=== PATIENT | male | born 1985 | race Caucasian/White ===

== ENCOUNTER 2023-10-18 22:34 | Emergency (ER) | payer MEDICAID, OTHER ==
--- NOTE | 2023-10-18 23:06 | ED ---
General Adult HPI - General Source: family, RN notes reviewed, old records reviewed Mode of arrival: ambulatory <Jesse Humphrey - Last Filed: 10/18/23 23:03> <Prosper Gutierrez - Last Filed: 10/19/23 13:37> - General Chief complaint: Psychiatric Symptoms Stated complaint: mental health-petition Time Seen by Provider: 10/18/23 22:50 - History of Present Illness Initial comments: 37-year-old male presenting for evaluation of suicidal thoughts, increased depression. Patient had an appointment with [facility] but this appointment was canceled earlier this week. He is having some financial difficulties and has had thoughts and statements about suicide. He denies physical complaint. Denies suicide attempt. (Jesse Humphrey) Review of Systems ROS Other: All systems not noted in ROS Statement are negative. <Jesse Humphrey - Last Filed: 10/18/23 23:03> ROS Other: All systems not noted in ROS Statement are negative. <Prosper Gutierrez - Last Filed: 10/19/23 13:37> ROS Statement: Those systems with pertinent positive or pertinent negative responses have been documented in the HPI. General Exam General appearance: alert, in no apparent distress Head exam: Present: atraumatic, normocephalic Eye exam: Present: normal appearance, PERRL Neck exam: Present: normal inspection. Absent: tenderness, meningismus Respiratory exam: Present: normal lung sounds bilaterally. Absent: respiratory distress Cardiovascular Exam: Present: regular rate, normal rhythm GI/Abdominal exam: Present: soft Extremities exam: Present: normal inspection, normal capillary refill Neurological exam: Present: alert, oriented X3 Psychiatric exam: Present: depressed, suicidal ideation Skin exam: Present: warm, dry, intact <Jesse Humphrey - Last Filed: 10/18/23 23:03> Course <Jesse Humphrey - Last Filed: 10/18/23 23:03> Vital Signs 10/18/23 22:41 Temperature 97.8 F Pulse Rate 90 Respiratory 18 Rate Blood Pressure 124/82 O2 Sat by Pulse 98 Oximetry - Reevaluation(s) Reevaluation #1: 10/18/23 23:04 Patient is petitioned by his fiance. (Jesse Humphrey) Reevaluation #2: 10/18/23 23:05 Patient cleared for EPS evaluation. (Jesse Humphrey) Medical Decision Making <Jesse Humphrey - Last Filed: 10/18/23 23:03> - Lab Data Result diagrams: 10/19/23 11:26 10/19/23 11:26 <Prosper Gutierrez - Last Filed: 10/19/23 13:37> - Medical Decision Making Was pt. sent in by a medical professional or institution (JESSEE Chahal, CIRCLE BEVELER, urgent care, hospital, or group home...) When possible be specific @ -No Did you speak to anyone other than the patient for history (EMS, parent, family, police, friend...)? What history was obtained from this source @ -No Did you review nursing and triage notes (agree or disagree)? Why? @ -I reviewed and agree with nursing and triage notes Were old charts reviewed (outside hosp., previous admission, EMS record, old EKG, old radiological studies, urgent care reports/EKG's, group home records)? Report findings @ -No old charts were reviewed Differential Diagnosis differential Mental Health Depression, anxiety, bipolar, psychosis, schizophrenia, borderline personality, situational depression, adjustment disorder, behavioral disorder, brain tumor, malingering, substance abuse, encephalopathy, medication reaction, dementia, hypothyroidism, degenerative neurologic disorder, lupus.... This is not meant to be all-inclusive list EKG interpreted by me (3pts min.). @ -As above X-rays interpreted by me (1pt min.). @ -None done CT interpreted by me (1pt min.). @ -None done U/S interpreted by me (1pt. min.). @ -None done What testing was considered but not performed or refused? (CT, X-rays, U/S, labs)? Why? @ -None What meds were considered but not given or refused? Why? @ -None Did you discuss the management of the patient with other professionals (professionals i.e. JESSEE Chahal, CIRCLE BEVELER, lab, RT, psych nurse, social insurance analyst, roller skates assembler, teacher, morals squad police officer, lining caser)? Give summary @ -No Was smoking cessation discussed for >3mins.? @ -No Was critical care preformed (if so, how long)? @ -No Were there social determinants of health that impacted care today? How? (Homelessness, low income, unemployed, alcoholism, drug addiction, transportation, low edu. Level, literacy, decrease access to med. care, [facility], rehab)? @ -No Was there de-escalation of care discussed even if they declined (Discuss DNR or withdrawal of care, Hospice)? DNR status @ -No What co-morbidities impacted this encounter? (DM, HTN, Smoking, COPD, CAD, Cancer, CVA, ARF, Chemo, Hep., AIDS, mental health diagnosis, sleep apnea, morbid obesity)? @ -None Was patient admitted / discharged? Hospital course, mention meds given and route, prescriptions, significant lab abnormalities, going to OR and other pertinent info. @ -Patient medically cleared for EPS, awaiting evaluation. (Jesse Humphrey) Case was discussed with psychiatric nurse with plans for transfer or admission for psychiatric care. Patient reevaluated. Patient admits to depression and suicidal thoughts for several days. Patient will be admitted or transferred for psychiatric care. Positive clinical certificate completed. Diagnosis: Depression Acute Complicated with suicidal thoughts (Prosper Gutierrez) - Lab Data Lab Results 10/18/23 10/19/23 10/19/23 Range/Units 23:38 11:26 11:26 WBC 5.2 (3.8-10.6) k/uL RBC 4.93 (4.30-5.90) m/uL Hgb 14.8 (13.0-17.5) gm/dL Hct 43.0 (39.0-53.0) % MCV 87.2 (80.0-100.0) fL MCH 30.1 (25.0-35.0) pg MCHC 34.5 (31.0-37.0) g/dL RDW 13.3 (11.5-15.5) % Plt Count 219 (150-450) k/uL MPV 7.5 Sodium 140 (137-145) mmol/L Potassium 4.0 (3.5-5.1) mmol/L Chloride 110 H (98-107) mmol/L Carbon Dioxide 22 (22-30) mmol/L Anion Gap 8 mmol/L BUN 13 (9-20) mg/dL Creatinine 0.85 (0.66-1.25) mg/dL Est GFR (CKD-EPI)AfAm >90 (>60 ml/min/1.73 sqM) Est GFR (CKD-EPI)NonAf >90 (>60 ml/min/1.73 sqM) Glucose 99 (74-99) mg/dL Calcium 9.7 (8.4-10.2) mg/dL Total Bilirubin 0.6 (0.2-1.3) mg/dL AST 44 (17-59) U/L ALT 63 H (4-49) U/L Alkaline Phosphatase 75 (38-126) U/L Total Protein 7.9 (6.3-8.2) g/dL Albumin 4.5 (3.5-5.0) g/dL Urine Opiates Screen Not Detected (NotDetected) Ur Oxycodone Screen Not Detected (NotDetected) Urine Methadone Screen Not Detected (NotDetected) Ur Barbiturates Screen Not Detected (NotDetected) U Tricyclic Antidepress Not Detected (NotDetected) Ur Phencyclidine Scrn Not Detected (NotDetected) Ur Amphetamines Screen Not Detected (NotDetected) U Methamphetamines Scrn Not Detected (NotDetected) U Benzodiazepines Scrn Not Detected (NotDetected) Urine Cocaine Screen Not Detected (NotDetected) U Marijuana (THC) Screen Detected H (NotDetected) SARS-CoV-2 (PCR) (Not Detectd) 10/19/23 Range/Units 11:26 WBC (3.8-10.6) k/uL RBC (4.30-5.90) m/uL Hgb (13.0-17.5) gm/dL Hct (39.0-53.0) % MCV (80.0-100.0) fL MCH (25.0-35.0) pg MCHC (31.0-37.0) g/dL RDW (11.5-15.5) % Plt Count (150-450) k/uL MPV Sodium (137-145) mmol/L Potassium (3.5-5.1) mmol/L Chloride (98-107) mmol/L Carbon Dioxide (22-30) mmol/L Anion Gap mmol/L BUN (9-20) mg/dL Creatinine (0.66-1.25) mg/dL Est GFR (CKD-EPI)AfAm (>60 ml/min/1.73 sqM) Est GFR (CKD-EPI)NonAf (>60 ml/min/1.73 sqM) Glucose (74-99) mg/dL Calcium (8.4-10.2) mg/dL Total Bilirubin (0.2-1.3) mg/dL AST (17-59) U/L ALT (4-49) U/L Alkaline Phosphatase (38-126) U/L Total Protein (6.3-8.2) g/dL Albumin (3.5-5.0) g/dL Urine Opiates Screen (NotDetected) Ur Oxycodone Screen (NotDetected) Urine Methadone Screen (NotDetected) Ur Barbiturates Screen (NotDetected) U Tricyclic Antidepress (NotDetected) Ur Phencyclidine Scrn (NotDetected) Ur Amphetamines Screen (NotDetected) U Methamphetamines Scrn (NotDetected) U Benzodiazepines Scrn (NotDetected) Urine Cocaine Screen (NotDetected) U Marijuana (THC) Screen (NotDetected) SARS-CoV-2 (PCR) Not Detected (Not Detectd) Disposition <Jesse Humphrey - Last Filed: 10/18/23 23:03> Is patient prescribed a controlled substance at d/c from ED?: No Time of Disposition: 13:37 <Prosper Gutierrez - Last Filed: 10/19/23 13:37> Clinical Impression: Depression, Suicidal ideation Disposition: TRANSFER TO PSYCH HOSP/UNIT Referrals: None,Stated [Primary Care Provider] - 1-2 days
[2023-10-18 23:58] LABS: Amphetamine Screen,Urine Not Detected (NotDetected); Barbiturate Screen,Urine Not Detected (NotDetected); Benzodiazepines Screen,Urine Not Detected (NotDetected); Cocaine Screen,Urine Not Detected (NotDetected); Methadone Screen, Urine Not Detected (NotDetected); Opiate Screen,Urine Not Detected (NotDetected); Oxycodone Screen, Urine Not Detected (NotDetected); Phencyclidine Screen,Urine Not Detected (NotDetected); Tricyclic Antidepressant,Urine Not Detected (NotDetected); Urn Cannabinoid Scrn Detected (NotDetected)
[2023-10-19] MEDS: ACETAMINOPHEN TAB 325 MG TAB PO STA (10:40)
[2023-10-19 11:39] LABS: HGB 14.8 gm/dL (13.0-17.5); MCH 30.1 pg (25.0-35.0); MCHC 34.5 g/dL (31.0-37.0); MCV 87.2 fL (80.0-100.0); Mean Platelet Volume 7.5; Platelet Count 219 k/uL (150-450); RBC 4.93 m/uL (4.30-5.90); RDW 13.3 % (11.5-15.5); WBC 5.2 k/uL (3.8-10.6)
[2023-10-19 12:05] LABS: ALT 63 U/L (4-49); AST 44 U/L (17-59); African American GFR (CKD) >90 (>60 ml/min/1.73 sqM); Albumin 4.5 g/dL (3.5-5.0); Alkaline Phosphatase 75 U/L (38-126); Anion Gap 8 mmol/L; Blood Urea Nitrogen 13 mg/dL (9-20); Calcium 9.7 mg/dL (8.4-10.2); Carbon Dioxide 22 mmol/L (22-30); Chloride 110 mmol/L (98-107); Glucose 99 mg/dL (74-99); Non-African American GFR(CKD) >90 (>60 ml/min/1.73 sqM); Sodium 140 mmol/L (137-145); Total Bilirubin 0.6 mg/dL (0.2-1.3); Total Protein 7.9 g/dL (6.3-8.2)
[2023-10-19 15:03] VITALS: RESP 16
[2023-10-19 20:37] VITALS: BP 134/74; PULSE 77; TEMP 98.8
[2023-10-19] MEDS: IBUPROFEN 400 MG TAB PO STA (20:44)
== END 2023-10-19 21:08 ==
LOC: EC 22:34
DX: F32.A Depression, unspecified (principal); R45.851 Suicidal ideations; Z11.52 Encounter for screening for COVID-19
CPT/HCPCS: 36415; 80053; 80306; 82075; 85027; 87635; 99285

== ENCOUNTER 2023-12-17 00:57 | Emergency (ER) | payer OTHER ==
[2023-12-17 01:09] VITALS: TEMP 98.2
[2023-12-17] MEDS: KETOROLAC 15 MG/ML 1 ML VIAL IVP STA (02:13)
[2023-12-17 02:19] LABS: Basophils % (A) 0 %; Eosinophils # (A) 0.5 k/uL (0-0.7); Eosinophils % (A) 5 %; HCT 37.2 % (39.0-53.0); HGB 12.7 gm/dL (13.0-17.5); Lymphocytes # (A) 1.7 k/uL (1.0-4.8); Lymphocytes % (A) 19 %; MCH 30.6 pg (25.0-35.0); MCHC 34.2 g/dL (31.0-37.0); MCV 89.6 fL (80.0-100.0); Mean Platelet Volume 7.2; Monocytes # (A) 0.6 k/uL (0-1.0); Monocytes % (A) 6 %; Neutrophils % (A) 68 %; Platelet Count 230 k/uL (150-450); RBC 4.15 m/uL (4.30-5.90); RDW 14.2 % (11.5-15.5); WBC 8.9 k/uL (3.8-10.6)
[2023-12-17 02:32] LABS: Appearance,Urine Clear (Clear); Bilirubin,Urine Negative (Negative); Blood,Urine Negative (Negative); Color,Urine Light Yellow; Glucose,Urine (UA) Negative (Negative); Ketones,Urine Negative (Negative); Leukocyte Esterase,Urine Negative (Negative); Nitrite,Urine Negative (Negative); PH, Urine 5.5 (5.0-8.0); Protein,Urine Negative (Negative); Specific Gravity,Urine 1.024 (1.001-1.035); Urobilinogen,Urine <2.0 mg/dL (<2.0)
[2023-12-17 02:35] LABS: ALT 38 U/L (4-49); AST 31 U/L (17-59); African American GFR (CKD) >90 (>60 ml/min/1.73 sqM); Albumin 3.9 g/dL (3.5-5.0); Alkaline Phosphatase 55 U/L (38-126); Anion Gap 5 mmol/L; Blood Urea Nitrogen 19 mg/dL (9-20); Calcium 9.1 mg/dL (8.4-10.2); Carbon Dioxide 25 mmol/L (22-30); Chloride 108 mmol/L (98-107); Glucose 104 mg/dL (74-99); Non-African American GFR(CKD) >90 (>60 ml/min/1.73 sqM); Potassium 3.6 mmol/L (3.5-5.1); Sodium 138 mmol/L (137-145); Total Bilirubin 0.6 mg/dL (0.2-1.3); Total Protein 6.4 g/dL (6.3-8.2)
--- NOTE | 2023-12-17 02:41 | ED ---
SOB HPI - General Chief Complaint: Shortness of Breath Stated Complaint: Left leg pain, YOMI , Chest Pressure Source: patient Mode of arrival: ambulatory Limitations: no limitations - History of Present Illness Initial Comments: 38-year-old male who presents emergency department reporting 2 right-sided flank pain. States that his symptoms have been going on for the past couple of days. Reports that the pain is worse with deep inspiration. Pain is also worse with m ovement and coughing. He has not taken anything for the pain. Denies any trauma. No fevers or chills. no other alleviating, precipitating or modifying factors - Related Data Previous Rx's Medication Instructions Recorded Ketorolac [Toradol] 10 mg PO Q8HR #15 tab 12/17/23 Lidocaine 5% Patch [Lidoderm] 1 patch TOPICAL DAILY #30 patch 12/17/23 Allergies Allergy/AdvReac Type Severity Reaction Status Date / Time No Known Allergies Allergy Verified 12/17/23 01:04 Review of Systems ROS Statement: Those systems with pertinent positive or pertinent negative responses have been documented in the HPI. ROS Other: All systems not noted in ROS Statement are negative. Past Medical History Past Medical History: No Reported History History of Any Multi-Drug Resistant Organisms: None Reported Past Surgical History: Cholecystectomy Past Psychological History: ADD/ADHD, Anxiety, Depression Smoking Status: Former smoker Past Alcohol Use History: Rare Past Drug Use History: Marijuana General Exam Limitations: no limitations General appearance: alert, in no apparent distress Head exam: Present: atraumatic, normocephalic, normal inspection Eye exam: Present: normal appearance, PERRL, EOMI. Absent: scleral icterus, conjunctival injection, periorbital swelling ENT exam: Present: normal exam, mucous membranes moist Neck exam: Present: normal inspection. Absent: tenderness, meningismus, lymphadenopathy Respiratory exam: Present: normal lung sounds bilaterally. Absent: respiratory distress, wheezes, rales, rhonchi, stridor Cardiovascular Exam: Present: regular rate, normal rhythm, normal heart sounds. Absent: systolic murmur, diastolic murmur, rubs, gallop, clicks GI/Abdominal exam: Present: soft, normal bowel sounds. Absent: distended, tenderness, guarding, rebound, rigid Extremities exam: Present: normal inspection, full ROM, normal capillary refill. Absent: tenderness, pedal edema, joint swelling, calf tenderness Back exam: Present: normal inspection, CVA tenderness (R) Neurological exam: Present: alert, oriented X3, CN II-XII intact Psychiatric exam: Present: normal affect, normal mood Skin exam: Present: warm, dry, intact, normal color. Absent: rash Course Vital Signs 12/17/23 12/17/23 01:04 05:13 Temperature 98.2 F Pulse Rate 102 H 84 Respiratory 20 19 Rate Blood Pressure 113/70 127/84 O2 Sat by Pulse 98 98 Oximetry Medical Decision Making - Medical Decision Making Was pt. sent in by a medical professional or institution (, PA, HEDGE FUND PRINCIPAL, urgent care, hospital, or usp...) When possible be specific @ -No Did you speak to anyone other than the patient for history (EMS, parent, family, police, friend...)? What history was obtained from this source @ -No Did you review nursing and triage notes (agree or disagree)? Why? @ -I reviewed and agree with nursing and triage notes Were old charts reviewed (outside hosp., previous admission, EMS record, old EKG, old radiological studies, urgent care reports/EKG's, usp records)? Report findings @ -No old charts were reviewed Differential Diagnosis (chest pain, altered mental status, abdominal pain women, abdominal pain men, vaginal bleeding, weakness, fever, dyspnea, syncope, headache, dizziness, GI bleed, back pain, seizure, CVA, palpatations, mental health, musculoskeletal)? @ -Differential Chest Pain: Stable Angina, Unstable Angina, STEMI, NSTEMI Aortic Dissection, Pneumothorax, Musculoskeletal, Esophageal Spasm GERD, Cholecystitis, Pancreatitis, Zoster, this is not meant to be an all-inclusive list. EKG interpreted by me (3pts min.). @ -Yes and demonstrates sinus rhythm with a rate of 90. IN interval 173. QRS 103. QTc of 388. No acute ST segment elevations or depressions X-rays interpreted by me (1pt min.). @ -Yes and demonstrates no acute process CT interpreted by me (1pt min.). @ -None done U/S interpreted by me (1pt. min.). @ -None done What testing was considered but not performed or refused? (CT, X-rays, U/S, labs)? Why? @ -None What meds were considered but not given or refused? Why? @ -None Did you discuss the management of the patient with other professionals (professionals i.e. , PA, HEDGE FUND PRINCIPAL, lab, RT, psych nurse, older adult social work specialist, material coordinator, teacher, public safety officer, binder caser)? Give summary @ -No Was smoking cessation discussed for >3mins.? @ -No Was critical care preformed (if so, how long)? @ -No Were there social determinants of health that impacted care today? How? (Homelessness, low income, unemployed, alcoholism, drug addiction, transportation, low edu. Level, literacy, decrease access to med. care, shelter, rehab)? @ -No Was there de-escalation of care discussed even if they declined (Discuss DNR or withdrawal of care, Hospice)? DNR status @ -No What co-morbidities impacted this encounter? (DM, HTN, Smoking, COPD, CAD, Cancer, CVA, ARF, Chemo, Hep., AIDS, mental health diagnosis, sleep apnea, morbid obesity)? @ -None Was patient admitted / discharged? Hospital course, mention meds given and route, prescriptions, significant lab abnormalities, going to OR and other pertinent info. @ -Upon arrival patient seen and evaluated in room 23. Thorough history and physical exam was performed. IV access was established. Laboratory studies are conducted. Patient is sent for a rib x-ray as D-dimer is negative. Results are discussed with the patient. Patient be discharged home at this time with prescription for Toradol and Lidoderm patches. Follow-up with his primary care doctor in 2 to 4 days return for any new or worsening symptoms Undiagnosed new problem with uncertain prognosis? @ -No Drug Therapy requiring intensive monitoring for toxicity (Heparin, Nitro, Insulin, Cardizem)? @ -No Were any procedures done? @ -No Diagnosis/symptom? @ -Acute right flank/chest wall pain Acute, or Chronic, or Acute on Chronic? @ -Acute Uncomplicated (without systemic symptoms) or Complicated (systemic symptoms)? @ -Complicated Side effects of treatment? @ -No Exacerbation, Progression, or Severe Exacerbation? @ -No Poses a threat to life or bodily function? How? (Chest pain, [place], ME, pneumonia, PE, COPD, DKA, ARF, appy, cholecystitis, CVA, Diverticulitis, Homicidal, Suicidal, threat to staff... and all critical care pts) @ -No - Lab Data Result diagrams: 12/17/23 02:09 12/17/23 02:09 Lab Results 12/17/23 12/17/23 12/17/23 Range/Units 02:09 02:09 02:09 WBC 8.9 (3.8-10.6) k/uL RBC 4.15 L (4.30-5.90) m/uL Hgb 12.7 L (13.0-17.5) gm/dL Hct 37.2 L (39.0-53.0) % MCV 89.6 (80.0-100.0) fL MCH 30.6 (25.0-35.0) pg MCHC 34.2 (31.0-37.0) g/dL RDW 14.2 (11.5-15.5) % Plt Count 230 (150-450) k/uL MPV 7.2 Neutrophils % 68 % Lymphocytes % 19 % Monocytes % 6 % Eosinophils % 5 % Basophils % 0 % Neutrophils # 6.0 (1.3-7.7) k/uL Lymphocytes # 1.7 (1.0-4.8) k/uL Monocytes # 0.6 (0-1.0) k/uL Eosinophils # 0.5 (0-0.7) k/uL Basophils # 0.0 (0-0.2) k/uL PT 9.9 L (10.0-12.5) sec INR 0.9 (<1.2) APTT 25.2 (22.0-30.0) sec D-Dimer 0.37 (<0.60) mg/L FEU Sodium 138 (137-145) mmol/L Potassium 3.6 (3.5-5.1) mmol/L Chloride 108 H (98-107) mmol/L Carbon Dioxide 25 (22-30) mmol/L Anion Gap 5 mmol/L BUN 19 (9-20) mg/dL Creatinine 0.88 (0.66-1.25) mg/dL Est GFR (CKD-EPI)AfAm >90 (>60 ml/min/1.73 sqM) Est GFR (CKD-EPI)NonAf >90 (>60 ml/min/1.73 sqM) Glucose 104 H (74-99) mg/dL Plasma Lactic Acid Jem (0.7-2.0) mmol/L Calcium 9.1 (8.4-10.2) mg/dL Total Bilirubin 0.6 (0.2-1.3) mg/dL AST 31 (17-59) U/L ALT 38 (4-49) U/L Alkaline Phosphatase 55 (38-126) U/L Troponin I (0.000-0.034) ng/mL Total Protein 6.4 (6.3-8.2) g/dL Albumin 3.9 (3.5-5.0) g/dL Urine Color Urine Appearance (Clear) Urine pH (5.0-8.0) Ur Specific [place] (1.001-1.035) Urine Protein (Negative) Urine Glucose (UA) (Negative) Urine Ketones (Negative) Urine Blood (Negative) Urine Nitrite (Negative) Urine Bilirubin (Negative) Urine Urobilinogen (<2.0) mg/dL Ur Leukocyte Esterase (Negative) 12/17/23 12/17/23 12/17/23 Range/Units 02:09 02:09 02:09 WBC (3.8-10.6) k/uL RBC (4.30-5.90) m/uL Hgb (13.0-17.5) gm/dL Hct (39.0-53.0) % MCV (80.0-100.0) fL MCH (25.0-35.0) pg MCHC (31.0-37.0) g/dL RDW (11.5-15.5) % Plt Count (150-450) k/uL MPV Neutrophils % % Lymphocytes % % Monocytes % % Eosinophils % % Basophils % % Neutrophils # (1.3-7.7) k/uL Lymphocytes # (1.0-4.8) k/uL Monocytes # (0-1.0) k/uL Eosinophils # (0-0.7) k/uL Basophils # (0-0.2) k/uL PT (10.0-12.5) sec INR (<1.2) APTT (22.0-30.0) sec D-Dimer (<0.60) mg/L FEU Sodium (137-145) mmol/L Potassium (3.5-5.1) mmol/L Chloride (98-107) mmol/L Carbon Dioxide (22-30) mmol/L Anion Gap mmol/L BUN (9-20) mg/dL Creatinine (0.66-1.25) mg/dL Est GFR (CKD-EPI)AfAm (>60 ml/min/1.73 sqM) Est GFR (CKD-EPI)NonAf (>60 ml/min/1.73 sqM) Glucose (74-99) mg/dL Plasma Lactic Acid Jem 1.8 (0.7-2.0) mmol/L Calcium (8.4-10.2) mg/dL Total Bilirubin (0.2-1.3) mg/dL AST (17-59) U/L ALT (4-49) U/L Alkaline Phosphatase (38-126) U/L Troponin I <0.012 (0.000-0.034) ng/mL Total Protein (6.3-8.2) g/dL Albumin (3.5-5.0) g/dL Urine Color Light Yellow Urine Appearance Clear (Clear) Urine pH 5.5 (5.0-8.0) Ur Specific [place] 1.024 (1.001-1.035) Urine Protein Negative (Negative) Urine Glucose (UA) Negative (Negative) Urine Ketones Negative (Negative) Urine Blood Negative (Negative) Urine Nitrite Negative (Negative) Urine Bilirubin Negative (Negative) Urine Urobilinogen <2.0 (<2.0) mg/dL Ur Leukocyte Esterase Negative (Negative) Disposition Clinical Impression: Left-sided chest wall pain Disposition: HOME SELF-CARE Condition: Stable Instructions (If sedation given, give patient instructions): Chest Wall Pain (ED) Additional Instructions: Please take the pain medications as needed. If the insurance does not cover the patches, ask for the [id number] alternatives. No heavy lifting or bending. Follow-up with your primary care doctor for further workup of your symptoms Prescriptions: Lidocaine 5% Patch [Lidoderm] 1 patch TOPICAL DAILY #30 patch Ketorolac [Toradol] 10 mg PO Q8HR #15 tab Is patient prescribed a controlled substance at d/c from ED?: No Referrals: Pavithra Patino MD [Primary Care Provider] - 1-2 days Time of Disposition: 05:08
[2023-12-17 03:03] LABS: INR 0.9 (<1.2); Partial Thromboplastin Time 25.2 sec (22.0-30.0); Prothrombin Time 9.9 sec (10.0-12.5)
--- NOTE | 2023-12-17 04:58 | XR ---
EXAMINATION TYPE: XR ribs LT w pa chest xray DATE OF EXAM: 12/17/2023 CLINICAL HISTORY: Patient reports that he has had a steadily increasing pain in the left flank area. increased SOB, chest tightness, pt reports when he coughed it was the worst pain he ever felt and it felt like something moved internally. pr reports bruising on the left flank, that is not currently vi sualized by this RN TECHNIQUE: Single frontal view of the chest is obtained. A frontal and oblique images of the left-victoriano ed ribs. COMPARISON: None FINDINGS: There is no focal air space opacity, pleural effusion, or pneumothorax seen. The cardiac silhouette size is within normal limits. The osseous structures are intact. Dedicated images of the left-sided ribs show no acute displaced fracture. Overlying soft tissue is un remarkable. IMPRESSION: No acute cardiopulmonary process. No acute displaced left-sided rib fracture.
[2023-12-17 05:14] VITALS: BP 127/84; PULSE 84; RESP 19
== END 2023-12-17 05:14 | disposition home or self-care (01) ==
LOC: EC 00:57
DX: R07.89 Other chest pain (principal); R10.9 Unspecified abdominal pain; Z87.891 Personal history of nicotine dependence
CPT/HCPCS: 36415; 93005; 85379; 80053; 83605; 84484; 85025; 85610; 85730; 81003; 71101; 99285; 96374; J1885

== ENCOUNTER → 2024-03-12 | Outpatient (CLI) | payer OTHER ==
--- NOTE | 2024-03-12 17:35 | US ---
EXAMINATION TYPE: US kidneys/renal and bladder DATE OF EXAM: 03/12/2024 COMPARISON: NONE CLINICAL INDICATION: Male, 38 years old with history of R10.9 ABD PAIN; Pain HX of stones. EXAM MEASUREMENTS: Right Kidney: 11.3 x 5.5 x 5.6 cm Left Kidney: 11.5 x 6.6 x 5.9 cm Right Kidney: No hydronephrosis or masses seen Left Kidney: Echogenic area seen mid pole no shadowing. Bladder: wnl Bilateral Jets seen: Yes There is no evidence for hydronephrosis at this point in time. No nephrolithiasis is seen. No sheri s are identified. The urinary bladder is anechoic. Bilateral ureteral jets are seen. IMPRESSION: 1. No evidence of obstructive uropathy. Possible left nonobstructing calculus. 2. Hyperechoic liver correlate for hepatic steatosis.
== END | disposition home or self-care (01) ==
LOC: RADUSWWP 15:40
PROVIDERS: ATTEND Internal Medicine
DX: R10.9 Unspecified abdominal pain
CPT/HCPCS: 76770

== ENCOUNTER 2024-05-29 08:16 | Emergency (ER) | payer OTHER ==
[2024-05-29 08:20] VITALS: RESP 18
--- NOTE | 2024-05-29 09:31 | XR ---
EXAMINATION TYPE: XR chest 2V DATE OF EXAM: 05/29/2024 9:04 AM COMPARISON: Chest radiographs from 12/17/2023 CLINICAL INDICATION: Male, 38 years old with history of chest pain; [facility] TECHNIQUE: XR chest 2V Frontal and lateral views of the chest. FINDINGS: Lungs/Pleura: There is no evidence of pleural effusion, focal consolidation, or pneumothorax. Pulmonary vascularity: Unremarkable. Heart/mediastinum: Cardiomediastinal silhouette is unremarkable. Musculoskeletal: No acute osseous pathology. IMPRESSION: No acute cardiopulmonary disease/process. [facility], , 05/29/2024 9:29 AM
--- NOTE | 2024-05-29 10:10 | ED ---
URI HPI - General Chief Complaint: Upper Respiratory Infection Stated Complaint: heavy chest/coughing up blood Time Seen by Provider: 05/29/24 08:20 Source: patient Mode of arrival: ambulatory Limitations: no limitations - History of Present Illness Initial Comments: 38-year-old male presents emergency department with cough, congestion, fevers and bodyaches for the past 5 days. He has had headache and fatigue. He denies any sick contacts with similar symptoms. He has been taking [id number] cough and cold medications without any improvement in his symptoms. Today the patient was coughing and had some blood streaking in his sputum. States that this was due to the harshness and duration of his cough. He also has some production of yellow sputum. Patient admits to sinus congestion. Has ear pain and mild sore throat. No history of any underlying lung conditions such as asthma or COPD. He denies any nausea or vomiting. No diarrhea. No history of any cardiac disease. No lower extremity swelling. No history of DVT or PE. No other alleviating, precipitating or modifying factors - Related Data Home Medications Medication Instructions Recorded Confirmed Lisdexamfetamine Dimesylate 30 mg PO DAILY 03/15/24 03/15/24 [Vyvanse] Previous Rx's Medication Instructions Recorded Albuterol Inhaler [Ventolin Hfa 2 puff INHALATION Q4HR #8 gm 05/29/24 Inhaler] Benzonatate [Tessalon Perles] 100 mg PO TID PRN #30 capsule 05/29/24 guaiFENesin [Mucinex] 600 mg PO Q12H #30 tab 05/29/24 predniSONE [Deltasone] 20 mg PO BID #10 tab 05/29/24 Allergies Allergy/AdvReac Type Severity Reaction Status Date / Time No Known Allergies Allergy Verified 05/29/24 08:20 Review of Systems ROS Statement: Those systems with pertinent positive or pertinent negative responses have been documented in the HPI. ROS Other: All systems not noted in ROS Statement are negative. Past Medical History Past Medical History: No Reported History History of Any Multi-Drug Resistant Organisms: None Reported Past Surgical History: Cholecystectomy Past Psychological History: ADD/ADHD, Anxiety, Depression Smoking Status: Former smoker Past Alcohol Use History: Rare Past Drug Use History: Marijuana General Exam Limitations: no limitations General appearance: alert, in no apparent distress Head exam: Present: atraumatic, normocephalic, normal inspection Eye exam: Present: normal appearance, PERRL, EOMI. Absent: scleral icterus, conjunctival injection, periorbital swelling ENT exam: Present: normal exam, mucous membranes moist Neck exam: Present: normal inspection. Absent: tenderness, meningismus, lymphadenopathy Respiratory exam: Present: normal lung sounds bilaterally. Absent: respiratory distress, wheezes, rales, rhonchi, stridor Cardiovascular Exam: Present: regular rate, normal rhythm, normal heart sounds. Absent: systolic murmur, diastolic murmur, rubs, gallop, clicks GI/Abdominal exam: Present: soft, normal bowel sounds. Absent: distended, tenderness, guarding, rebound, rigid Extremities exam: Present: normal inspection, full ROM, normal capillary refill. Absent: tenderness, pedal edema, joint swelling, calf tenderness Back exam: Present: normal inspection Neurological exam: Present: alert, oriented X3, CN II-XII intact Psychiatric exam: Present: normal affect, normal mood Skin exam: Present: warm, dry, intact, normal color. Absent: rash Course Vital Signs 05/29/24 05/29/24 08:17 10:43 Temperature 98.2 F 98.1 F Pulse Rate 88 96 Respiratory 18 18 Rate Blood Pressure 120/78 126/84 O2 Sat by Pulse 98 97 Oximetry Medical Decision Making - Medical Decision Making Was pt. sent in by a medical professional or institution (JESSEE Chahal, TRACK LEADER, urgent care, hospital, or residential...) When possible be specific @ -No Did you speak to anyone other than the patient for history (EMS, parent, family, police, friend...)? What history was obtained from this source @ -No Did you review nursing and triage notes (agree or disagree)? Why? @ -I reviewed and agree with nursing and triage notes Were old charts reviewed (outside hosp., previous admission, EMS record, old EKG, old radiological studies, urgent care reports/EKG's, residential records)? Report findings @ -No old charts were reviewed Differential Diagnosis (chest pain, altered mental status, abdominal pain women, abdominal pain men, vaginal bleeding, weakness, fever, dyspnea, syncope, headache, dizziness, GI bleed, back pain, seizure, CVA, palpatations, mental health, musculoskeletal)? @ -Differential Dyspnea: Coronary syndrome, arrhythmia, tamponade, asthma, COPD, pulmonary embolism, pneumonia, pneumothorax, pulmonary effusion, anaphylaxis, diabetic ketoacidosis, flailed chest, pulmonary contusion, diaphragmatic rupture, anemia, neuromuscular, this is not meant to be an all-inclusive list. EKG interpreted by me (3pts min.). @ -Not done X-rays interpreted by me (1pt min.). @ -Yes and demonstrates no acute process CT interpreted by me (1pt min.). @ -None done U/S interpreted by me (1pt. min.). @ -None done What testing was considered but not performed or refused? (CT, X-rays, U/S, labs)? Why? @ -None What meds were considered but not given or refused? Why? @ -None Did you discuss the management of the patient with other professionals (professionals i.e. , PA, TRACK LEADER, lab, RT, psych nurse, social media specialist, merchandising internship, teacher, preventive medicine officer, spring encaser)? Give summary @ -No Was smoking cessation discussed for >3mins.? @ -No Was critical care preformed (if so, how long)? @ -No Were there social determinants of health that impacted care today? How? (Homelessness, low income, unemployed, alcoholism, drug addiction, transportation, low edu. Level, literacy, decrease access to med. care, usp, rehab)? @ -No Was there de-escalation of care discussed even if they declined (Discuss DNR or withdrawal of care, Hospice)? DNR status @ -No What co-morbidities impacted this encounter? (DM, HTN, Smoking, COPD, CAD, Cancer, CVA, ARF, Chemo, Hep., AIDS, mental health diagnosis, sleep apnea, morbid obesity)? @ -None Was patient admitted / discharged? Hospital course, mention meds given and route, prescriptions, significant lab abnormalities, going to OR and other pertinent info. @ -Upon arrival patient seen and evaluated in hallway 26. Thorough history and physical exam was performed. Patient is swabbed for influenza, COVID and RSV. This does return and is negative. Patient additionally has a chest x-ray performed which demonstrates no acute process. Clinical symptoms are consistent with acute bronchitis. Patient does have a streaking hemoptysis due to harshness of cough. Evaluation of the sputum demonstrates that it was very minor amounts, pink-tinged in color. No thick dark blood in any significant amount. no concerning signs of PE at this time. Patient will be discharged home on prednisone, albuterol inhaler, Mucinex and Tessalon Perles. He will use these medications as instructed and evaluate for improvement in symptoms. If he has any new or worsening symptoms he must return immediately to the emergency department. Recommend that he follow-up with his primary care doctor within 2 to 4 days. Patient was agreeable to this plan he was discharged home in stable condition Undiagnosed new problem with uncertain prognosis? @ -No Drug Therapy requiring intensive monitoring for toxicity (Heparin, Nitro, Insulin, Cardizem)? @ -No Were any procedures done? @ -No Diagnosis/symptom? @ -Acute cough, acute bronchitis Acute, or Chronic, or Acute on Chronic? @ -Acute Uncomplicated (without systemic symptoms) or Complicated (systemic symptoms)? @ -Complicated Side effects of treatment? @ -No Exacerbation, Progression, or Severe Exacerbation? @ -No Poses a threat to life or bodily function? How? (Chest pain, USA, [place], pneumonia, PE, COPD, DKA, ARF, appy, cholecystitis, CVA, Diverticulitis, Homicidal, Suicidal, threat to staff... and all critical care pts) @ -No - Lab Data Lab Results 05/29/24 Range/Units 08:35 Influenza Type A (PCR) Not Detected (Not Detectd) Influenza Type B (PCR) Not Detected (Not Detectd) RSV (PCR) Not Detected (Not Detectd) SARS-CoV-2 (PCR) Not Detected (Not Detectd) Disposition Clinical Impression: Cough, Acute bronchitis Disposition: HOME SELF-CARE Condition: Stable Instructions (If sedation given, give patient instructions): Acute Bronchitis (ED) Additional Instructions: Use the inhaler every 4 hours. Take the prednisone starting tomorrow. Use the Tessalon Perles as needed for cough. Take the Mucinex as prescribed. If your symptoms persist within 48 to 72 hours, start the antibiotic. Follow-up with your doctor within 2 to 4 days. Return for any new or worsening symptoms Prescriptions: predniSONE [Deltasone] 20 mg PO BID #10 tab guaiFENesin [Mucinex] 600 mg PO Q12H #30 tab Benzonatate [Tessalon Perles] 100 mg PO TID PRN #30 capsule PRN Reason: Cough Albuterol Inhaler [Ventolin Hfa Inhaler] 2 puff INHALATION Q4HR #8 gm Is patient prescribed a controlled substance at d/c from ED?: No Referrals: Pavithra Patino MD [Primary Care Provider] - 1-2 days Time of Disposition: 10:10
[2024-05-29] MEDS: predniSONE 20 MG TAB PO STA (10:38)
[2024-05-29 11:18] VITALS: BP 126/84; PULSE 96; TEMP 98.1
== END 2024-05-29 10:43 | disposition home or self-care (01) ==
LOC: EC 08:16
DX: J20.9 Acute bronchitis, unspecified (principal); Z87.891 Personal history of nicotine dependence
CPT/HCPCS: 87636; 71046; 99283; J7512

== ENCOUNTER 2025-01-17 07:52 | Emergency (ER) | payer OTHER ==
[2025-01-17 08:01] VITALS: TEMP 98.8
--- NOTE | 2025-01-17 08:25 | ED ---
General Adult HPI - General Chief complaint: Back Pain/Injury Stated complaint: Abd pain Time Seen by Provider: 01/17/25 08:00 Source: patient, RN notes reviewed, old records reviewed Mode of arrival: ambulatory Limitations: no limitations - History of Present Illness Initial comments: This is a 39-year-old male who presents to the emergency department stating that he has had left-sided flank pain for 2 weeks. Patient states he has a little bit of lower back pain on the right. Patient states this morning the pain in the left got too bad so he decided to come in. Patient states bending twisting or touching the area makes it more tender. Patient states he does have a history of kidney stones but does not normally act like this. Patient denies any dysuria hematuria urinary frequency. Patient has any fever or chills. - Related Data Home Medications Medication Instructions Recorded Confirmed Lisdexamfetamine Dimesylate 30 mg PO DAILY 03/15/24 03/15/24 [Vyvanse] Previous Rx's Medication Instructions Recorded Albuterol Inhaler [Ventolin Hfa 2 puff INHALATION Q4HR #8 gm 05/29/24 Inhaler] Benzonatate [Tessalon Perles] 100 mg PO TID PRN #30 capsule 05/29/24 guaiFENesin [Mucinex] 600 mg PO Q12H #30 tab 05/29/24 predniSONE [Deltasone] 20 mg PO BID #10 tab 05/29/24 Cyclobenzaprine [Flexeril] 10 mg PO TID #20 tab 01/17/25 Ketorolac [Toradol] 10 mg PO Q8HR #15 tab 01/17/25 Allergies Allergy/AdvReac Type Severity Reaction Status Date / Time No Known Allergies Allergy Verified 01/17/25 08:01 Review of Systems ROS Statement: Those systems with pertinent positive or pertinent negative responses have been documented in the HPI. ROS Other: All systems not noted in ROS Statement are negative. Past Medical History Past Medical History: No Reported History Additional Past Medical History / Comment(s): kidney stones, History of Any Multi-Drug Resistant Organisms: None Reported Past Surgical History: Cholecystectomy Past Psychological History: ADD/ADHD, Anxiety, Depression Smoking Status: Former smoker Past Alcohol Use History: Rare Past Drug Use History: Marijuana General Exam - General Exam Comments Initial Comments: GENERAL: Patient is well-developed and well-nourished. Patient is nontoxic and well- hydrated and is in mild distress. ENT: Neck is soft and supple. No significant lymphadenopathy is noted. Oropharynx is clear. Moist mucous membranes. Neck has full range of motion without eliciting any pain. EYES: The sclera were anicteric and conjunctiva were pink and moist. Extraocular movements were intact and pupils were equal round and reactive to light. Eyelids were unremarkable. PULMONARY: Unlabored respirations. Good breath sounds bilaterally. No audible rales rhonchi or wheezing was noted. CARDIOVASCULAR: There is a regular rate and rhythm without any murmurs gallops or rubs. ABDOMEN: Soft and nontender with normal bowel sounds. SKIN: Skin is clear with no lesions or rashes and otherwise unremarkable. NEUROLOGIC: Patient is alert and oriented x3. Cranial nerves II through XII are grossly intact. Motor and sensory are also intact. Normal speech, volume and content. Symmetrical smile MUSCULOSKELETAL: Normal extremities with adequate strength and full range of motion. Patient has tenderness palpating the left lower back. Patient has no abdominal tenderness PSYCHIATRIC: Normal psychiatric evaluation. Limitations: no limitations Course Vital Signs 01/17/25 01/17/25 07:58 08:46 Temperature 98.8 F Pulse Rate 96 95 Respiratory 18 20 Rate Blood Pressure 115/76 129/71 O2 Sat by Pulse 100 100 Oximetry Medical Decision Making - Medical Decision Making Was pt. sent in by a medical professional or institution (JESSEE Chahal, PUBLIC AFFAIRS MANAGER, urgent care, hospital, or care home...) When possible be specific @ -No Did you speak to anyone other than the patient for history (EMS, parent, family, police, friend...)? What history was obtained from this source @ -No Did you review nursing and triage notes (agree or disagree)? Why? @ -I reviewed and agree with nursing and triage notes Were old charts reviewed (outside hosp., previous admission, EMS record, old EKG, old radiological studies, urgent care reports/EKG's, care home records)? Report findings @ -No old charts were reviewed Differential Diagnosis? @ -Differential Back Pain: Strain, zoster, cauda equina syndrome, epidural abscess, vertebral osteomyelitis, discitis, fracture, subluxation, disc herniation, DJD, spinal stenosis, dissection, AAA, pancreatitis, peptic ulcer disease, pyelonephritis, kidney stone, this is not meant to be an all-inclusive list. EKG interpreted by me (3pts min.). @ -As above X-rays interpreted by me (1pt min.). @ -None done CT interpreted by me (1pt min.). @ -None done U/S interpreted by me (1pt. min.). @ -None done What testing was considered but not performed or refused? (CT, X-rays, U/S, labs)? Why? @ -None What meds were considered but not given or refused? Why? @ -None Did you discuss the management of the patient with other professionals (professionals i.e. , PA, PUBLIC AFFAIRS MANAGER, lab, RT, psych nurse, social media designer, college teacher, teacher, evp and chief operating officer, rn case manager)? Give summary @ -No Was smoking cessation discussed for >3mins.? @ -No Was critical care preformed (if so, how long)? @ -No Were there social determinants of health that impacted care today? How? (Homelessness, low income, unemployed, alcoholism, drug addiction, transportation, low edu. Level, literacy, decrease access to med. care, penitentiary, rehab)? @ -No Was there de-escalation of care discussed even if they declined (Discuss DNR or withdrawal of care, Hospice)? DNR status @ -No What co-morbidities impacted this encounter? (DM, HTN, Smoking, COPD, CAD, Cancer, CVA, ARF, Chemo, Hep., AIDS, mental health diagnosis, sleep apnea, morbid obesity)? @ -None Was patient admitted / discharged? Hospital course, mention meds given and route, prescriptions, significant lab abnormalities, going to OR and other pertinent info. @ -Patient received Norflex Toradol and Dilaudid for pain and was feeling considerably better patient be discharged home. Lab work showed no acute abnormality. Undiagnosed new problem with uncertain prognosis? @ -No Drug Therapy requiring intensive monitoring for toxicity (Heparin, Nitro, Insulin, Cardizem)? @ -No Were any procedures done? @ -No Diagnosis/symptom? @ -Lumbar strain Acute, or Chronic, or Acute on Chronic? @ -Acute Uncomplicated (without systemic symptoms) or Complicated (systemic symptoms)? @ -Uncomplicated Side effects of treatment? @ -No Exacerbation, Progression, or Severe Exacerbation? @ -No Poses a threat to life or bodily function? How? (Chest pain, USA, [place], pneumonia, PE, COPD, DKA, ARF, appy, cholecystitis, CVA, Diverticulitis, Homicidal, Suicidal, threat to staff... and all critical care pts) @ -No - Lab Data Result diagrams: 01/17/25 08:44 01/17/25 08:44 Lab Results 01/17/25 01/17/25 01/17/25 Range/Units 08:44 08:44 08:44 WBC 14.76 H (4.50-10.00) 10*3/uL RBC 4.05 L (4.40-5.60) 10*6/uL Hgb 12.7 L (13.0-17.0) g/dL Hct 36.4 L (39.6-50.0) % MCV 89.9 (80.0-97.0) fL MCH 31.4 (27.0-32.0) pg MCHC 34.9 (32.0-37.0) g/dL Plt Count 207 (140-440) 10*3/uL MPV 9.2 L (9.5-12.2) fL Immature Gran % (Auto) 0.5 % Neutrophils % 89.4 % Lymphocytes % 3.9 % Monocytes % 5.8 % Eosinophils % 0.2 % Basophils % 0.2 % Immature Gran # 0.07 H (0.00-0.04) 10*3/uL Neutrophils # 13.19 H (1.80-7.70) 10*3/uL Lymphocytes # 0.58 L (0.90-5.00) 10*3/uL Monocytes # 0.86 (0.20-1.00) 10*3/uL Eosinophils # 0.03 L (0.04-0.35) 10*3/uL Basophils # 0.03 (0.00-0.10) 10*3/uL Sodium 137 (137-145) mmol/L Potassium 3.6 (3.5-5.1) mmol/L Chloride 104 (98-107) mmol/L Carbon Dioxide 22 (22-30) mmol/L Anion Gap 11 mmol/L BUN 14 (9-20) mg/dL Creatinine 0.92 (0.66-1.25) mg/dL Est GFR (CKD-EPI)AfAm >90 (>60 ml/min/1.73 sqM) Est GFR (CKD-EPI)NonAf >90 (>60 ml/min/1.73 sqM) Glucose 112 H (74-99) mg/dL Calcium 9.4 (8.4-10.2) mg/dL Total Bilirubin 0.7 (0.2-1.3) mg/dL AST 24 (17-59) U/L ALT 22 (4-49) U/L Alkaline Phosphatase 67 (38-126) U/L Total Protein 7.2 (6.3-8.2) g/dL Albumin 4.5 (3.5-5.0) g/dL Urine Color Light Yellow Urine Appearance Clear (Clear) Urine pH 8.0 (5.0-8.0) Ur Specific [place] 1.021 (1.001-1.035) Urine Protein Negative (Negative) Urine Glucose (UA) Negative (Negative) Urine Ketones Negative (Negative) Urine Blood Negative (Negative) Urine Nitrite Negative (Negative) Urine Bilirubin Negative (Negative) Urine Urobilinogen <2.0 (<2.0) mg/dL Ur Leukocyte Esterase Small H (Negative) Urine WBC 15 H (0-5) /hpf Urine Mucus Occasional H (None) /hpf Disposition Clinical Impression: Strain of lumbar region Disposition: HOME SELF-CARE Condition: Good Instructions (If sedation given, give patient instructions): Low Back Strain (ED) Prescriptions: Cyclobenzaprine [Flexeril] 10 mg PO TID #20 tab Ketorolac [Toradol] 10 mg PO Q8HR #15 tab Is patient prescribed a controlled substance at d/c from ED?: No Referrals: Pavithra Patino MD [Primary Care Provider] - 1-2 days Time of Disposition: 10:27
[2025-01-17] MEDS: KETOROLAC 15 MG/ML 1 ML VIAL IVP STA (08:39)
[2025-01-17] MEDS: ORPHENADRINE 30 MG/ML 2 ML VIAL IVP STA (08:40)
[2025-01-17 08:49] VITALS: RESP 20
[2025-01-17 08:52] LABS: Basophils # (A) 0.03 10*3/uL (0.00-0.10); Basophils % (A) 0.2 %; Eosinophils # (A) 0.03 10*3/uL (0.04-0.35); Eosinophils % (A) 0.2 %; HCT 36.4 % (39.6-50.0); HGB 12.7 g/dL (13.0-17.0); Lymphocytes # (A) 0.58 10*3/uL (0.90-5.00); Lymphocytes % (A) 3.9 %; MCH 31.4 pg (27.0-32.0); MCHC 34.9 g/dL (32.0-37.0); MCV 89.9 fL (80.0-97.0); Monocytes # (A) 0.86 10*3/uL (0.20-1.00); Monocytes % (A) 5.8 %; Neutrophils # (A) 13.19 10*3/uL (1.80-7.70); Neutrophils % (A) 89.4 %; Platelet Count 207 10*3/uL (140-440); RBC 4.05 10*6/uL (4.40-5.60); RDW 12.5 % (11.5-14.5); WBC 14.76 10*3/uL (4.50-10.00)
[2025-01-17 08:59] LABS: Bilirubin,Urine Negative (Negative); Blood,Urine Negative (Negative); Color,Urine Light Yellow; Glucose,Urine (UA) Negative (Negative); Ketones,Urine Negative (Negative); Leukocyte Esterase,Urine Small (Negative); Mucus,Urine Occasional /hpf; Nitrite,Urine Negative (Negative); PH, Urine 8.0 (5.0-8.0); Protein,Urine Negative (Negative); Specific Gravity,Urine 1.021 (1.001-1.035); Urobilinogen,Urine <2.0 mg/dL (<2.0); WBC,Urine 15 /hpf (0-5)
[2025-01-17 09:24] LABS: ALT 22 U/L (4-49); AST 24 U/L (17-59); African American GFR (CKD) >90 (>60 ml/min/1.73 sqM); Albumin 4.5 g/dL (3.5-5.0); Alkaline Phosphatase 67 U/L (38-126); Anion Gap 11 mmol/L; Blood Urea Nitrogen 14 mg/dL (9-20); Calcium 9.4 mg/dL (8.4-10.2); Carbon Dioxide 22 mmol/L (22-30); Chloride 104 mmol/L (98-107); Glucose 112 mg/dL (74-99); Non-African American GFR(CKD) >90 (>60 ml/min/1.73 sqM); Potassium 3.6 mmol/L (3.5-5.1); Sodium 137 mmol/L (137-145); Total Protein 7.2 g/dL (6.3-8.2)
[2025-01-17] MEDS: HYDROmorphone 0.5 MG/0.5 ML SYRINGE IVP STA (09:54)
[2025-01-17 10:48] VITALS: BP 132/79; PULSE 92
== END 2025-01-17 10:49 | disposition home or self-care (01) ==
LOC: EC 07:52
DX: S39.012A Strain of muscle, fascia and tendon of lower back, initial encounter (principal); Z87.891 Personal history of nicotine dependence; X58.XXXA Exposure to other specified factors, initial encounter
CPT/HCPCS: 36415; 80053; 85025; 81001; 87086; 99284; 96374; 96375; J2360; J1885; J1171